=== PATIENT | male | born 1980 | race African-American/Black ===

== ENCOUNTER 2018-07-27 08:32 | Emergency (ER) | payer SELFPAY ==
[~2018-07-27] VITALS: Ht 193 cm; Wt 80.0 kg
[2018-07-27] MEDS ORDERED: PROTONIX40 M2 PO (08:49)
[2018-07-27] MEDS ORDERED: BACLOFEN10 MG PO (08:49)
[2018-07-27] MEDS ORDERED: PROAIR HFA108 MCG/AC PO (08:49)
[2018-07-27] MEDS ORDERED: ZPAK PO (08:49)
[2018-07-27] MEDS ORDERED: METOCLOPRAMIDE10 M1 PO (08:49)
[2018-07-27 09:22] VITALS: BP 143/91
== END 2018-07-27 09:22 | disposition home or self-care (01) | DRG 204 ==
LOC: ED 08:32
DX: R06.6 Hiccough (principal); J06.9 Acute upper respiratory infection, unspecified